=== PATIENT | female | born 1960 | race Caucasian/White ===

== ENCOUNTER 2020-08-27 06:51 | Observation (INO) | payer OTHER ==
[2020-08-22 13:54] LABS: ANION GAP 16.7 mmol/L (8-16); CALCIUM 9.2 mg/dL (8.4-10.2); CREATININE, SERUM 1.06 mg/dL (0.57-1.11); POTASSIUM 3.7 mmol/L (3.5-5.1)
[~2020-08-27] VITALS: Ht 157.5 cm; Wt 93.7 kg
[~2020-08-27 06:51] MED LIST: GABAPENTIN400 MG PO; HYDROCHLOROTHIA25 MG PO; LIPITOR10 MG PO; PANTOPRAZOLE SO40 MG PO; PROZAC40 MG PO; ZESTRIL10 MG PO
[2020-08-27] MEDS ORDERED: VITAMIN B-121000 MCG PO (07:14)
[2020-08-27] MEDS ORDERED: DEXAMETHASONE SOD PHOS 10 MG/1 ML VIAL ONE (07:29)
[2020-08-27] MEDS ORDERED: CELECOXIB 200 MG CAP ONE (07:29)
[2020-08-27] MEDS ORDERED: GABAPENTIN 300 MG CAP ONE (07:30)
[2020-08-27] MEDS ORDERED: CEFAZOLIN SOD 1 GM/NS 50ML 100 ML IV ONE (07:30)
[2020-08-27] MEDS ORDERED: ROPIVACAINE 246.25 MG, EPINEPHRINE HCL 1:1000 1ML 0.5 MG, CLONIDINE HCL 0.08 MG, KETORO... INJ ONE ×5 (08:00)
[2020-08-27] MEDS ORDERED: BUPIVACAINE 7.5MG/ML /DEXTROSE 82.5MG/ML 2 ML AMP INJ ONE (08:20)
[2020-08-27] MEDS ORDERED: VANCOMYCIN HCL 1,000 MG ONE (08:50)
[2020-08-27] MEDS ORDERED: TRANEXAMIC ACID 1,000 MG/10 ML ML ONE (08:50)
[2020-08-27] MEDS ORDERED: SODIUM CHLORIDE 0.9% 500ML 500 ML ONE (09:01)
[2020-08-27] MEDS ORDERED: DOCUSATE SODIUM 100 MG CAP PO PRN (10:45)
[2020-08-27] MEDS ORDERED: ONDANSETRON HCL INJ 2MG/ML 2ML 2 MG/ML VIAL IV PRN (10:45)
[2020-08-27] MEDS ORDERED: HYDROCODONE/APAP 5MG-325MG TAB PO PRN (10:45)
[2020-08-27] MEDS ORDERED: DIPHENHYDRAMINE HCL INJ 50 MG/ML VIAL IV PRN (10:45)
[2020-08-27] MEDS ORDERED: ACETAMINOPHEN 650 MG SUPP PR PRN (10:45)
[2020-08-27] MEDS ORDERED: KETOROLAC TROMETHAMINE 30 MG/ML VIAL IV PRN (10:45)
[2020-08-27] MEDS ORDERED: PROPOFOL IV EMULSION 10 MG/ML 20 ML VIAL ONE (12:13)
[2020-08-27] MEDS ORDERED: ONDANSETRON HCL INJ 2MG/ML 2ML 2 MG/ML VIAL ONE (12:13)
[2020-08-27] MEDS ORDERED: LIDOCAINE HCL 2% LOCAL INJ 5 ML SDV VIAL INJ ONE (12:13)
[2020-08-27] MEDS ORDERED: MIDAZOLAM HCL 2 MG/2 ML VIAL ONE (12:40)
[2020-08-27] MEDS ORDERED: FENTANYL CITRATE/PF 100MCG/2 ML INJ ONE (12:40)
[2020-08-27] MEDS: SODIUM CHLORIDE 0.9% 1000ML 1,000 ML IV SCH ×2 (13:07→21:23)
[2020-08-27] MEDS: HYDROCODONE/APAP 7.5MG-325MG 1 EA TAB PO PRN ×4 (13:20→22:13)
[2020-08-27 14:17] VITALS: BP 104/60
[2020-08-27 15:57] VITALS: BP 125/61
[2020-08-27] MEDS: CELECOXIB 100 MG CAP PO SCH (17:37)
[2020-08-27] MEDS: ASPIRIN 325 MG TAB PO SCH (17:38)
[2020-08-27] MEDS: CEFAZOLIN SOD 1 GM/NS 50ML 50 ML IV SCH (17:45)
[2020-08-27 19:09] VITALS: BP 125/61
[2020-08-27 20:00] VITALS: BP 97/71
[2020-08-27] MEDS ORDERED: ZOLPIDEM TARTRATE 5 MG TAB PO PRN (21:00)
[2020-08-27 22:51] VITALS: BP 97/71
[2020-08-28] VITALS: BP 98/84
[2020-08-28] MEDS: CEFAZOLIN SOD 1 GM/NS 50ML 50 ML IV SCH ×2 (02:15→09:00)
[2020-08-28] MEDS: HYDROCODONE/APAP 7.5MG-325MG 1 EA TAB PO PRN ×4 (02:15→08:03)
[2020-08-28 04:00] VITALS: BP 100/67
[2020-08-28] MEDS: SODIUM CHLORIDE 0.9% 1000ML 1,000 ML IV SCH (06:10)
[2020-08-28 07:46] VITALS: BP 141/78
[2020-08-28 07:58] VITALS: BP 141/78
[2020-08-28] MEDS: CELECOXIB 100 MG CAP PO SCH (08:01)
[2020-08-28] MEDS: ASPIRIN 325 MG TAB PO SCH (08:01)
[2020-08-28 08:57] LABS: HEMATOCRIT 28.8 % (34.2-44.1); HEMOGLOBIN 9.6 g/dL (12.0-16.0)
[2020-08-28] MEDS ORDERED: ACETAMINOPHEN 1000 MG/100 ML IV PRN (10:45)
== END 2020-08-28 11:03 | disposition home or self-care (01) ==
LOC: OR 06:51 → PACU V 10:59 → MED/SURG 12:37
PROVIDERS: ADMIT Specialist; ATTEND Specialist
DX: M16.11 Unilateral primary osteoarthritis, right hip (principal); I10 Essential (primary) hypertension; E78.00 Pure hypercholesterolemia, unspecified; K29.70 Gastritis, unspecified, without bleeding; Z20.822 Contact with and (suspected) exposure to COVID-19; Z01.818 Encounter for other preprocedural examination
CPT/HCPCS: 27130; 36415 ×2; 72170; 80048; 85014; 85018; 86850; 86900; 93005; 97116 ×2; 97162; 97530 ×2; G0378 ×2; J0131; J0171; J0690 ×2; J1100; J1885; J2001; J2405; J2704; J2795; J3370; J7030; J7040; U0002; 86920; J2250; J3010

== ENCOUNTER 2020-09-03 10:05 | Outpatient (RCR) | payer OTHER ==
[~2020-09-03 10:05] MED LIST changes: +VITAMIN B-121000 MCG PO
== END 2020-09-06 ==
LOC: PT 10:05
PROVIDERS: ATTEND Specialist
DX: M16.11 Unilateral primary osteoarthritis, right hip (principal)

== ENCOUNTER 2020-09-23 14:52 | Outpatient (RCR) | payer OTHER | END 2020-10-07 | LOC: PT 14:52 | PROVIDERS: ATTEND Specialist | DX: M16.11 Unilateral primary osteoarthritis, right hip (principal) ==

== ENCOUNTER 2020-10-29 15:00 | Outpatient (RCR) | payer OTHER | END 2020-11-06 | LOC: PT 15:00 | PROVIDERS: ATTEND Specialist | DX: M16.11 Unilateral primary osteoarthritis, right hip (principal) | CPT/HCPCS: 97139 ==

== ENCOUNTER 2020-11-07 10:51 | Outpatient (RCR) | payer OTHER | END 2020-12-07 | LOC: PT 10:51 | PROVIDERS: ATTEND Specialist | DX: Z47.1 Aftercare following joint replacement surgery (principal); Z96.641 Presence of right artificial hip joint; M16.11 Unilateral primary osteoarthritis, right hip; M25.551 Pain in right hip; R26.2 Difficulty in walking, not elsewhere classified; M62.81 Muscle weakness (generalized) ==

== ENCOUNTER 2021-02-18 11:42 | Emergency (ER) | payer OTHER ==
[~2021-02-18] VITALS: Ht 157.5 cm; Wt 93.4 kg
== END 2021-02-18 12:15 | disposition home or self-care (01) ==
LOC: ER 12:15
DX: M79.671 Pain in right foot (principal); M72.2 Plantar fascial fibromatosis; I10 Essential (primary) hypertension; E78.5 Hyperlipidemia, unspecified; K21.9 Gastro-esophageal reflux disease without esophagitis; F41.9 Anxiety disorder, unspecified
CPT/HCPCS: 99282